=== PATIENT | female | born 2000 | race Caucasian/White ===

== ENCOUNTER 2024-12-09 10:15 | Emergency (ER) | payer MEDICAID, SELFPAY ==
[2024-12-09 10:15] VITALS: BP 155/79; PULSE 115; RESP 18; TEMP 37.2; O2SAT 98; BMI 49.3
--- NOTE | 2024-12-09 10:43 | EX.ED.DYSGE1 ---
HPI History of Present Illness Chief Complaint: Abd Pain Narrative Narrative: Chief complaint and HPI: Diarrhea. 24-year-old female with no significant past medical history presents for evaluation of nonbloody diarrhea. Patient states yesterday she developed nonbloody diarrhea, nausea, and low-grade fever. Denies any URI symptoms, cough, shortness of breath, chest pain, abdominal pain, dysuria. Does not believe herself to be . Patient states she has been drinking water but is concerned she is dehydrated. Review of systems: See HPI Medications: As listed on the chart Allergies: As listed on the chart PFSH: Per chart Vital signs: As listed on the chart. Reviewed. Physical exam: Gen: A&O x3, NAD Head: Normocephalic, atraumatic Eyes: No sclera icterus, conjunctiva clear ENT: Moist mucous membranes Neck: Trachea midline, No JVD CV: RRR, no murmurs, no peripheral edema Resp: Lungs CTA BL, no w/r/c GI: Abd soft, non-distended, non-tender, no r/r/g : No CVA tenderness Musc: Full ROM, no deformity Skin: Warm, dry Neuro: Alert, oriented, grossly intact, sensation intact Psych: Cooperative, appropriate mood and affect PFS PFS Allergy/AdvReac Type Severity Reaction Status Date / Time flaxseed Allergy Anaphylaxis Verified 12/09/24 10:18 Milk Containing Products AdvReac VOMITING Verified 12/09/24 10:18 (Dairy) Social History Smoking Status: Never smoker EXAM Physical Exam Const Vital Signs: 12/09/24 10:15 Temperature 99 F Temperature Source Temporal Pulse Rate 115 H Respiratory Rate 18 Blood Pressure 155/79 H Blood Pressure Mean 104 Pulse Ox 98 Oxygen Delivery Method Room Air MDM MDM MDM Narrative Medical decision making narrative: 24-year-old female with no significant past medical history presents for evaluation of nonbloody diarrhea. Patient states yesterday she developed nonbloody diarrhea, nausea, and low-grade fever. Concerned she is dehydrated. Patient endorses being able to take p.o. intake. Differential diagnosis includes but is not limited to viral illness, dehydration, electrolyte abnormality, AKSHAT, UTI suspect less likely or intra-abdominal pathology. I do not think any imaging is needed at this time. Patient will be given Tylenol, NS bolus, Zofran. Will obtain basic labs. CBC without leukocytosis. Patient has anemia with hemoglobin 11.3. She will need to have this worked up outpatient. CMP unremarkable for AKSHAT, significant electrolyte abnormality, transaminitis. Lipase unremarkable. UA negative for UTI and . Patient symptoms are likely secondary to gastroenteritis. Follow-up with PCP. Return precautions explained. Zofran as needed for nausea and vomiting. Patient requesting work note. Patient returned understanding of plan. Impression: 1. Diarrhea 2. Nausea Lab Data Labs: Laboratory Results - last 24 hr 12/09/24 12/09/24 10:58 11:07 WBC 8.0 RBC 6.13 H Hgb 11.3 L Hct 38.2 MCV 62.3 L MCH 18.4 L MCHC 29.6 L RDW Std Deviation 33.6 L RDW Coeff of Gerry 17.0 H Plt Count 258 MPV 10.6 Immature Gran % (Auto) 0.600 Neut % (Auto) 77.5 H Lymph % (Auto) 12.3 L [place] % (Auto) 8.2 Eos % (Auto) 1.0 Baso % (Auto) 0.4 Absolute Neuts (auto) 6.2 Absolute Lymphs (auto) 0.99 Nucleated RBC % 0 Sodium 136 Potassium 3.9 Chloride 104 Carbon Dioxide 19.9 L Anion Gap 13 BUN 8 Creatinine 0.73 Estim Creat Clear Calc 170.75 Est GFR (MDRD) Non-Af 117 BUN/Creatinine Ratio 10.3 Glucose 113 H Calcium 9.1 Total Bilirubin 0.57 AST 25 ALT 20 Alkaline Phosphatase 88 Total Protein 7.7 Albumin 4.4 Globulin 3.3 Albumin/Globulin Ratio 1.3 Lipase 26 Urine Color Yellow Urine Clarity Clear Urine pH 5.0 Ur Specific [place] 1.020 Urine Protein 15 H Urine Glucose (UA) Normal Urine Ketones Negative Urine Occult Blood 10 H Urine Nitrite Negative Urine Bilirubin Negative Urine Urobilinogen Normal Ur Leukocyte Esterase Negative Urine RBC 0 SEEN Urine WBC 0 SEEN Ur Squamous Epith Cells 0-5 SEEN Urine Bacteria 0 SEEN Urine Mucus 0 SEEN Urine Test Negative Discharge Plan Triage Chief Complaint: Abd Pain ED Provider: Zane Santizo Dx/Rx/DC Orders Primary Care Provider: Care Physician,No Primary Referrals: Care Physician,No Primary [Primary Care Provider] - Print Language: [place]er
[2024-12-09] MEDS: Acetaminophen 325 MG Tablet 650 MG PO (10:54)
[2024-12-09] MEDS: 0.9% Normal Saline (1000mL) 1,000 ML 1000 ML IV (10:56)
[2024-12-09] MEDS: Ondansetron 4 MG/2 ML Vial IV (10:56)
[2024-12-09 11:09] LABS: Absolute Lymphocyte Count 0.99 X10^3/uL (0.83-4.51); Absolute Neutrophil Count 6.2 X10^3/uL (2.0-7.7); Basophil# 0.03 X10^3/uL; Basophil% 0.4 % (0-1); Eosinophil# 0.08 X10^3/uL; Hematocrit 38.2 % (37-47); Hemoglobin 11.3 g/dL (12.0-15.0); Lymphocyte # 0.99 X10^3/ul (0.83-4.51); Lymphocyte % 12.3 % (19-41); Mean Corp Hgb Conc 29.6 g/dL (32-36); Mean Corpuscular Hgb 18.4 pg (27.0-32.0); Mean Corpuscular Volume 62.3 fL (81-99); Mean Platelet Vol. 10.6 fl (6.2-12.0); Monocyte# 0.66 X10^3/uL; Monocyte% 8.2 % (0-10); NRBC Flagged by Analyzer 0 % (0-5); Neutrophil # 6.21 X10^3/uL (2.7-7.7); Neutrophil % 77.5 % (47-70); Platelet Count 258 K/mm3 (150-450); RBC Distribution Width SD 33.6 fl (35.1-43.9); Red Blood Count 6.13 M/mm3 (4.2-5.4)
[2024-12-09 11:14] LABS: Bacteria 0 SEEN /hpf (None Seen); Color, Urine Yellow (Yellow); Glucose, Dipstick Normal (Normal); Ketone-Dipstick Negative (Negative); Leukocyte Esterase-Dipstick Negative /ul (Negative); Mucous, Urine 0 SEEN /hpf (<or=2+); Nitrite-Dipstick Negative (Negative); Occult Blood-Urine 10 /ul (Negative); Protein-Dipstick 15 mg/dl (Negative); Red Blood Cells-Urine 0 SEEN /hpf (0-5); Urine Bilirubin Dipstick Negative (Negative); Urine Clarity Clear (Clear); Urine Urobilinogen Normal (Normal); White Blood Cells 0 SEEN /hpf (0-5)
[2024-12-09 11:20] LABS: Internal QC Validated? YES +Cl - CLEAR BKGD; Pregnancy, Urine Negative Negative; Squamous Epithelial Cells - UA 0-5 SEEN /hpf (5-10)
[2024-12-09 11:33] LABS: ALB/GLOB Ratio 1.3 RATIO (0.9-2.4); AST(SGOT) 25 U/L (<=31); Alanine Aminotransfer ALT/SGPT 20 U/L (<=34); Albumin, Serum 4.4 g/dL (3.5-5.0); Alkaline Phosphatase 88 U/L (35-104); Anion Gap 13 (5-15); BUN 8 mg/dL (4-19); BUN/Creat Ratio 10.3 RATIO (10-20); Calcium,Total 9.1 mg/dL (7.6-11.0); Carbon Dioxide 19.9 mmol/L (21.0-32.0); Chloride 104 mmol/L (98-108); Creatinine, Serum 0.73 mg/dL (0.70-1.20); EST Glomerular Filtration Rate 117 (>60); Estimated Creatinine Clearance 170.75 ml/min (50-250); Globulin 3.3 g/dL (2.2-4.2); Glucose 113 mg/dL (70-99); Lipase 26 U/L (13-75); Potassium 3.9 mmol/L (3.3-5.1); Protein, Total 7.7 g/dL (5.9-8.4); Sodium Level 136 mmol/L (133-145); Total Bilirubin 0.57 mg/dL (0.00-1.30)
[2024-12-09 11:57] VITALS: BP 116/91; PULSE 62; RESP 14; TEMP 36.7; O2SAT 97
--- NOTE | 2024-12-09 15:33 | CM.ED ---
Social Work Reason for visit: No PCP Patient confirms that she does not currently have a PCP, states her and her family have recently moved into the area and have not had time to find a doctor. [facility] provider list was given, patient appreciative of same. No further needs at this time. Shannon Lopez, LOADING CHECKER, SENIOR ENERGY CONSULTANT
== END 2024-12-09 11:57 | disposition home or self-care (01) ==
PROVIDERS: Emergency Provider Surgery; Visit Provider Surgery
DX: R19.7 Diarrhea, unspecified (principal); D64.9 Anemia, unspecified; R10.9 Unspecified abdominal pain; R11.0 Nausea
CPT/HCPCS: 80053; 81001; 81025; 83690; 85025; 96361; 96374; 99284; A4216; J2405